=== PATIENT | male | born 2000 | race Two or more races ===

== ENCOUNTER 2024-04-14 09:42 | Emergency (ER) | payer MEDICAID, OTHER ==
[~2024-04-14] VITALS: Ht 180.3 cm; Wt 73.8 kg
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
[2024-04-14 11:10] VITALS: BP 149/84; PULSE 76; RESP 18; TEMP 98; O2SAT 97
[2024-04-14] MEDS ORDERED: IBU600T PO (11:25)
== END 2024-04-14 11:41 | disposition home or self-care (01) ==
LOC: ER 09:42
DX: S06.0X0A Concussion without loss of consciousness, initial encounter (principal); S13.4XXA Sprain of ligaments of cervical spine, initial encounter; V43.52XA Car driver injured in collision with other type car in traffic accident, initial encounter; Y93.89 Activity, other specified; Y92.410 Unspecified street and highway as the place of occurrence of the external cause; Y99.8 Other external cause status
CPT/HCPCS: 70450

== ENCOUNTER 2024-04-21 02:19 | Emergency (ER) | payer MEDICAID, OTHER ==
[~2024-04-21] VITALS: Ht 180.3 cm; Wt 74.7 kg
[~2024-04-21 02:19] MED LIST: IBU600T PO
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
[2024-04-21] MEDS ORDERED: TEMA7.5C11 PO (06:47)
[2024-04-21 06:53] VITALS: BP 132/94; TEMP 98.4
[2024-04-21 06:58] VITALS: PULSE 89; RESP 17; O2SAT 100
== END 2024-04-21 06:59 | disposition home or self-care (01) ==
LOC: ER 02:19
DX: G47.00 Insomnia, unspecified (principal)

== ENCOUNTER 2024-05-30 09:15 | Emergency (ER) | payer MEDICAID ==
[~2024-05-30] VITALS: Ht 180.3 cm; Wt 75.9 kg
[~2024-05-30 09:15] MED LIST changes: +TEMA7.5C11 PO
[2024-05-30 10:00] VITALS: BP 143/88; PULSE 95; RESP 20; TEMP 98.9; O2SAT 97
[2024-05-30] MEDS ORDERED: AZIT-185 PO (10:30)
[2024-05-30] MEDS ORDERED: LIDO2SOL26 MT (10:30)
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
== END 2024-05-30 10:33 | disposition home or self-care (01) ==
LOC: ER 09:15
DX: J02.9 Acute pharyngitis, unspecified (principal)